=== PATIENT | male | born 1940 | race Caucasian/White ===

== ENCOUNTER → 2016-10-22 | Outpatient (CLI) | payer BC, OTHER ==
[~2016-10-22] MED LIST: ACET-1256 PO; ALBUAER2 INH; CALC-354 PO; CALCTAB5 PO; CETI10TA84 PO; ERGO1CAP35 PO; FEXO1TAB46 PO; GLUC1CAP33 PO; LPR25 PO; LRS10 PO; MAGN250T22 PO; MAGN400T6 PO; MULTTAB5 PO; POTASSIUM OTC PO; PRLSR20 PO; SIMV20TA5 PO
[2016-10-22 10:14] LABS: BLOOD UREA NITROGEN 13 mg/dl (7-18); BUN/CREATININE RATIO 17.6 (10-20); CARBON DIOXIDE 29 mmol/L (21-32); CHLORIDE 103 mmol/L (98-107); CHOLESTEROL 299 mg/dl (0-200); CREATININE 0.71 mg/dl (0.60-1.40); GLUCOSE 105 mg/dl (70-99); MAGNESIUM 2.6 mg/dl (1.8-2.4); SODIUM 137 mmol/L (136-145)
[2016-10-22 10:17] LABS: CHOLESTEROL/HDL RATIO 6.5; HDL CHOLESTEROL 46 mg/dl; LDL CHOLESTEROL CALCULATED 174 mg/dl; TRIGLYCERIDES 394 mg/dl (0-150); VERY LOW DENSITY LIPOPROT CALC 79 mg/dl
[2016-10-22 10:31] LABS: CALCIUM 9.6 mg/dl (8.5-10.1)
== END | disposition home or self-care (01) ==
LOC: C.LAB1850 08:39
PROVIDERS: ATTEND Family Medicine
DX: K27.9 Peptic ulcer, site unspecified, unspecified as acute or chronic, without hemorrhage or perforation (principal); I10 Essential (primary) hypertension

== ENCOUNTER → 2017-03-19 | Outpatient (CLI) | payer BC, OTHER ==
[~2017-03-19] MED LIST changes: -CALC-354 PO; -CETI10TA84 PO; -GLUC1CAP33 PO; -MAGN250T22 PO
--- NOTE | 2017-03-19 17:23 | DIAGNOSTIC IMAGING REPORT ---
TWO VIEW CHEST CLINICAL HISTORY: COPD exacerbation. FINDINGS: PA and lateral chest radiographs are compared to chest x-ray and chest CT dated 09/12/2012. The cardiomediastinal silhouette is unremarkable. There is atherosclerotic calcification of the thoracic aorta. There is chronic elevation of the right hemidiaphragm with evidence of previous right-sided pulmonary resection. Trace pleural fluid is noted at the right lung base, likely on a postoperative basis. Emphysema and chronic interstitial thickening are similar to previous. No airspace consolidation or pleural effusion is identified. There is no pneumothorax. The skeletal structures are osteopenic. Compression deformities are noted in the thoracic spine. Chronic deformity is noted in the right sided ribs. IMPRESSION: 1. No acute cardiopulmonary abnormality. 2. Emphysema and postoperative change in the right lung are similar to previous. Electronically signed by: Amado Dumont M.D. 03/19/2017 5:22 PM Dictated Date/Time: 03/19/2017 5:19 PM
[2017-03-19 17:45] LABS: BASO % 0.4 %; BASO ABS # 0.04 K/uL (0-0.2); COMPLETE YES; EOS % 1.1 %; HEMATOCRIT 46.8 % (42-52); IG% 0.3 %; LYMPH % 8.2 %; LYMPH ABS # 0.83 K/uL (1.2-3.4); MEAN CELL VOLUME 90.2 fL (80-100); MEAN CORPUSCULAR HEMOGLOBIN 29.3 pg (25-34); MEAN CORPUSCULAR HGB CONC 32.5 g/dl (32-36); PLATELET COUNT 284 K/uL (130-400); RED BLOOD COUNT 5.19 M/uL (4.7-6.1); WHITE BLOOD COUNT 10.16 K/uL (4.8-10.8)
[2017-03-19 18:16] LABS: BLOOD UREA NITROGEN 14 mg/dl (7-18); BUN/CREATININE RATIO 17.5 (10-20); CALCIUM 9.6 mg/dl (8.5-10.1); CARBON DIOXIDE 30 mmol/L (21-32); CHLORIDE 103 mmol/L (98-107); CREATININE 0.78 mg/dl (0.60-1.40); GLUCOSE 107 mg/dl (70-99); POTASSIUM 4.2 mmol/L (3.5-5.1); SODIUM 139 mmol/L (136-145)
== END | disposition home or self-care (01) ==
LOC: C.LAB 16:38
PROVIDERS: ATTEND Nurse Practitioner Family
DX: J44.1 Chronic obstructive pulmonary disease with (acute) exacerbation (principal)

== ENCOUNTER 2017-04-26 16:47 | Emergency (ER) | payer BC, OTHER ==
[~2017-04-26] VITALS: Ht 170.2 cm; Wt 71.0 kg
[2017-04-26 16:55] VITALS: TEMP 36.5; Ht 170.2 cm; Wt 71.0 kg
[2017-04-26] MEDS ORDERED: SODIUM CHLORIDE 0.9% 1000ML 1,000 ML IV SCH (17:44)
[2017-04-26] MEDS ORDERED: PRLSR20 PO (18:06)
[2017-04-26] MEDS ORDERED: CALC-354 PO (18:06)
[2017-04-26] MEDS ORDERED: MAGN250T22 PO (18:06)
[2017-04-26] MEDS ORDERED: CETI10TA84 PO (18:06)
[2017-04-26] MEDS ORDERED: GLUC1CAP33 PO (18:06)
[2017-04-26 18:08] VITALS: O2SAT 93
[2017-04-26 18:29] LABS: BASO % 0.2 %; BASO ABS # 0.03 K/uL (0-0.2); COMPLETE YES; EOS % 0.6 %; HEMATOCRIT 50.3 % (42-52); IG% 0.5 %; LYMPH ABS # 1.17 K/uL (1.2-3.4); MEAN CORPUSCULAR HEMOGLOBIN 29.4 pg (25-34); MEAN PLATELET VOLUME 10.8 fL (7.4-10.4); MONO % 9.3 %; NEUT % 80.4 %; PLATELET COUNT 264 K/uL (130-400); RED BLOOD COUNT 5.65 M/uL (4.7-6.1); WHITE BLOOD COUNT 13.01 K/uL (4.8-10.8)
[2017-04-26 18:37] LABS: PARTIAL THROMBOPLASTIN RATIO 1.3; PROTHROMBIN TIME (PATIENT) 10.9 SECONDS (9.0-12.0)
[2017-04-26 18:51] LABS: BLOOD UREA NITROGEN 11 mg/dl (7-18); BUN/CREATININE RATIO 14.3 (10-20); CALCIUM 10.3 mg/dl (8.5-10.1); CARBON DIOXIDE 35 mmol/L (21-32); CHLORIDE 97 mmol/L (98-107); GLUCOSE 104 mg/dl (70-99); MAGNESIUM 2.4 mg/dl (1.8-2.4); POTASSIUM 3.2 mmol/L (3.5-5.1); SODIUM 135 mmol/L (136-145)
[2017-04-26 18:56] LABS: CKMB/CK RATIO 3.3 (0-3.0)
--- NOTE | 2017-04-26 19:26 | DIAGNOSTIC IMAGING REPORT ---
CT OF THE HEAD WITHOUT CONTRAST CLINICAL HISTORY: Visual disturbance. Possible stroke. COMPARISON STUDY: Head CT September 14, 2012. TECHNIQUE: Helical axial images of the head were obtained without IV contrast. Automated exposure control was utilized for the study. A dose lowering technique was utilized adhering to the principles of ALARA. FINDINGS: No acute intracranial hemorrhage, midline shift or mass effect is present. Ventricular system is normal. Basilar cisterns are patent. There are no extra axial collections. There are no CT findings to suggest acute dural sinus thrombosis or acute territorial infarct. Of note, there is a large destructive mass centered within the posterior nasopharynx/retropharyngeal soft tissues which measures approximately 4.5 x 3.4 cm. There is extensive associated bony destruction involving the sphenoid sinuses, sella, clivus and anterior aspect of the occipital condyles. There is suspected intracranial extension as well as extension into the cavernous sinus. There is mild mucosal thickening of the posterior ethmoid air cells. The sphenoid sinuses are opacified, partially by tumor. Mastoid air cells are clear. IMPRESSION: 1. No acute intracranial hemorrhage. No CT evidence of acute infarct. 2. Large destructive mass centered within the sphenoid sinuses with extensive associated bony erosion involving the sella and clivus with suspected intracranial extension and involvement of the cavernous sinus. The findings are highly suggestive of malignancy. ENT consultation is recommended. Electronically signed by: Willy Gibson M.D. 04/26/2017 7:24 PM Dictated Date/Time: 04/26/2017 7:11 PM
--- NOTE | 2017-04-26 19:34 | DIAGNOSTIC IMAGING REPORT ---
IAC-ORB/SELLA/TEMP BONE W/O CLINICAL HISTORY: Left eye proptosis, double vision. COMPARISON STUDY: Head CT September 14, [address] September 12, 2012. TECHNIQUE: Axial images through the orbits were obtained without IV contrast. Coronal and sagittal reconstructions were viewed. FINDINGS: Note is made of a large destructive mass centered within the sphenoid sinuses which measures approximately 4.5 x 3.4 cm. There is extensive associated bony erosion, including erosion of the moya of the sphenoid sinus, the sella, the clivus and anterior occipital condyles. There is extension into the retropharyngeal soft tissues with marked narrowing/occlusion of the nasopharynx. The inferior aspect of this abnormality is not imaged on this examination. There is moderate mucosal thickening of the right maxillary and ethmoid sinuses. A small amount of fluid is noted within left mastoid air cells. Suspected intracranial extension is noted as well as involvement of the cavernous sinus. IMPRESSION: 1. Large destructive mass centered within the clivus and sphenoid sinuses with extensive bony erosion, intracranial extension and involvement of the cavernous sinuses as well as extension into the retropharyngeal soft tissues with marked narrowing of the nasopharynx. Inferior extent of this abnormality not imaged on this exam. These findings are highly suggestive of a malignancy. ENT consultation is recommended. 2. Moderate sinus mucosal thickening and a small amount of fluid within the left mastoid air cells. Electronically signed by: Willy Gibson M.D. 04/26/2017 7:32 PM Dictated Date/Time: 04/26/2017 7:26 PM
--- NOTE | 2017-04-26 22:58 | DIAGNOSTIC IMAGING REPORT ---
FACIAL/NECK MRI WITH AND WITHOUT CONTRAST CLINICAL HISTORY: New onset diplopia and eye deviation, abnormal CT findings. COMPARISON STUDY: Head CT and Orbit CT performed earlier today. TECHNIQUE: Utilizing a 1.5 Amie magnet and dedicated coil, multiplanar, multi echo imaging of the face and neck was performed pre and postcontrast administration. Injection of 7.5 cc of Gadavist IV was uneventful. Thin cut post contrast imaging was performed with reconstructions. FINDINGS: Note is made of a large destructive mass centered within the right posterior nasopharynx that measures 7.8 x 5.2 x 2.5 cm in the craniocaudal by transverse by AP dimensions respectively. This mass is T1 hypointense and T2 hyperintense and demonstrates avid peripheral enhancement with nonenhancing central portions which could reflect necrosis. Associated bony destruction is better depicted on the head CT which was performed earlier today. There is extension into the cavernous sinus as well as suspected slight intracranial extension through the posterior aspect of the clivus. Associated bony involvement includes the moya of the sphenoid sinus, the sella and the clivus. Motion artifact makes exact delineation of the mass difficult. No cervical lymphadenopathy is identified. Moderate amount of fluid is noted within left mastoid air cells. There is moderate mucosal thickening of the sinuses. The sphenoid sinuses are opacified. The MRI of the brain will be reported separately. IMPRESSION: 1. Large infiltrative mass centered within the right posterior nasopharynx with extensive bony destruction, better depicted on CT performed earlier today. Extension into the cavernous sinus and probable minimal intracranial extension through the posterior clivus. Motion artifact makes exact delineation of the mass difficult. 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 However, nasopharyngeal lymphoma, adenoid cystic carcinoma, plasmacytoma, chondrosarcoma and chordoma could appear similar. ENT consultation for consideration for tissue sampling is recommended. 2. No cervical lymphadenopathy identified although sensitivity diminished given motion artifact. Electronically signed by: Willy Gibson M.D. 04/26/2017 10:57 PM Dictated Date/Time: 04/26/2017 10:45 PM
--- NOTE | 2017-04-26 22:59 | DIAGNOSTIC IMAGING REPORT ---
MRI OF THE BRAIN WITHOUT AND WITH IV CONTRAST CLINICAL HISTORY: New onset diplopia and eye deviation, abnormal CT findings. COMPARISON STUDY: Head CT and orbit CT performed earlier today. TECHNIQUE: Utilizing a 1.5 Amie magnet and dedicated coil, multiplanar, multiecho imaging of the brain was performed pre and postcontrast administration. IV administration of 7.5 mL of Gadavist contrast was uneventful. FINDINGS: There are no foci of restricted diffusion to suggest acute infarct. No acute intracranial hemorrhage is present. This exam is compromised by motion artifact. Ventricular system is unremarkable. Basilar cisterns are patent. There are no extra-axial collections. A few white matter T2 hyperintense foci suggest mild small vessel disease. Note is made of a large destructive mass centered within the right posterior nasopharynx that measures 7.8 x 4.8 x 2.7 cm in the craniocaudal by transverse by AP dimensions respectively. This mass is T1 hypointense and T2 hyperintense and demonstrates avid peripheral enhancement with nonenhancing central portions which could reflect necrosis. Associated bony destruction is better depicted on the head CT which was performed earlier today. There is extension into the cavernous sinus as well as suspected slight intracranial extension through the posterior aspect of the clivus. Associated bony involvement involves the moya of the sphenoid sinus, the sella and the clivus. A moderate amount of fluid is noted within the left mastoid air cells. Flow-voids for the major intracranial vessels are present. There is mild to moderate mucosal thickening of the sinuses. IMPRESSION: 1. No evidence for acute infarction. No acute intracranial hemorrhage. 2. Large infiltrative enhancing mass centered within the right posterior nasopharynx with extensive osseous invasion and involvement of the cavernous sinus and probable intracranial extension through the clivus. 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 However, nasopharyngeal lymphoma, metastatic disease, adenoid cystic carcinoma, plasmacytoma, chondrosarcoma, and chordoma could appear similar. ENT consultation is recommended. Electronically signed by: Willy Gibson M.D. 04/26/2017 10:57 PM Dictated Date/Time: 04/26/2017 10:35 PM
[2017-04-26] MEDS ORDERED: POTASSIUM CHLORIDE 10 MEQ TABCR PO STA (23:42)
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
[2017-04-26 23:58] VITALS: BP 129/79; PULSE 122; O2SAT 93
[2017-04-27 00:06] LABS: THYROID STIMULATING HORMONE 0.957 uIu/ml (0.300-4.500)
--- NOTE | 2017-04-27 11:18 | EMERGENCY ROOM VISIT NOTE ---
History First contact with patient: 17:07 Chief Complaint: EYE ASSESSMENT Stated Complaint: LEFT EYE GOING CROSSED, SINUSES CLOSED OVER A SHAYLA History of Present Illness The patient is a 77 year old male who presents to the Emergency Room with complaints of double vision which started yesterday. He states that this started as seeing two things right next to each other after waking up from a nap. noticed that when he woke up, his left eye was "crooked and discolored (red)." He reports a gritty tingly sensation of the left eye but no pain. He reports no trauma to the area. Also reports he has been suffering from a head cold for over one month now, mostly sinus congestion. He has been on multiple antibiotics and mucinex, none of which have helped. 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 Review of Systems Constitutional: No fever, No chills, No sweats, No weight loss, No weakness , No fatigue, No problem reported Eyes: + worsening of vision, + redness, + diplopia, No eye pain, No discharge ENT: + nasal symptoms, + sore throat, + trouble swallowing, No unusual epistaxis Respiratory: + cough, + sputum, + shortness of breath Cardiovascular: No chest pain, No orthopnea, No PND, No edema, No claudication, No palpitations, No problem reported Abdomen: No pain, No nausea, No vomiting, No diarrhea, No constipation, No GI bleeding, No problem reported Musculoskeletal: + joint pain Genitourinary - Male: No hematuria, No dysuria, No urinary frequency, No urinary urgency, No urinary hesitancy, No urinary retention, No urinary incontinence, No penile discharge, No lesions, No impotence, No problem reported Neurologic: No numbness/tingling, No vertigo, No balance problems Past Medical/Surgical History Medical Problems: (1) Amputated above knee (2) History of sarcoma Surgical Problems: (1) S/P lobectomy of lung Social History Smoking Status: Former Smoker Current/Historical Medications Scheduled Calcium Carbonate-Cholecalcife (Caltrate 600+D), 1 TAB PO DAILY Cetirizine (Zyrtec), 10 MG PO DAILY Glucosamine-Chondroitin (Glucosamine & Chondroitin 500-400 mg), 1 TAB PO DAILY Magnesium Oxide (Magnesium), 1 TAB PO DAILY Omeprazole (Prilosec), 20 MG PO BID Physical Exam Vital Signs Date Time Temp Pulse Resp B/P (MAP) Pulse Ox O2 Delivery O2 Flow Rate FiO2 04/26/17 23:58 122 16 129/79 93 04/26/17 22:31 72 20 122/71 95 Room Air 04/26/17 20:03 117 04/26/17 19:59 116 18 148/92 96 Room Air 04/26/17 19:14 114 22 123/101 92 Room Air 04/26/17 18:08 93 Room Air 04/26/17 16:55 36.5 124 20 106/64 93 Room Air Physical Exam General Appearance: WD/WN, no apparent distress Head: normocephalic, atraumatic Eyes: PERRL, + abnormal EOM (disconjugate gaze, with left eye adduction( lateral gaze) intact and left eye abduction (medial gaze) compromised), + pertinent finding (left eye mildly proptosed and erythematous; left eye deviated medially and superiorly) ENT: + muffled/hoarse voice, + pertinent finding (soft palate appears to be depressed and bulbous) Neck: supple, no adenopathy, thyroid normal, no carotid bruits, trachea midline Respiratory/Chest: chest non-tender, lungs clear, normal breath sounds, no respiratory distress Cardiovascular: regular rate, rhythm, no edema, no gallop, no JVD, no murmur Abdomen / GI: normal bowel sounds, non tender, no organomegaly Extremities: no pedal edema, + pertinent finding (patient has AKA of right leg. 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 COMPARISON STUDY: Head CT September 14, [address] September 12, 2012. TECHNIQUE: Axial images through the orbits were obtained without IV contrast. Coronal and sagittal reconstructions were viewed. FINDINGS: Note is made of a large destructive mass centered within the sphenoid sinuses which measures approximately 4.5 x 3.4 cm. There is extensive associated bony erosion, including erosion of the moya of the sphenoid sinus, the sella, the clivus and anterior occipital condyles. There is extension into the retropharyngeal soft tissues with marked narrowing/occlusion of the nasopharynx. The inferior aspect of this abnormality is not imaged on this examination. There is moderate mucosal thickening of the right maxillary and ethmoid sinuses. A small amount of fluid is noted within left mastoid air cells. Suspected intracranial extension is noted as well as involvement of the cavernous sinus. IMPRESSION: 1. Large destructive mass centered within the clivus and sphenoid sinuses with extensive bony erosion, intracranial extension and involvement of the cavernous sinuses as well as extension into the retropharyngeal soft tissues with marked narrowing of the nasopharynx. Inferior extent of this abnormality not imaged on this exam. These findings are highly suggestive of a malignancy. ENT consultation is recommended. 2. Moderate sinus mucosal thickening and a small amount of fluid within the left mastoid air cells. CT OF THE HEAD WITHOUT CONTRAST CLINICAL HISTORY: Visual disturbance. Possible stroke. COMPARISON STUDY: Head CT September 14, 2012. TECHNIQUE: Helical axial images of the head were obtained without IV contrast. Automated exposure control was utilized for the study. A dose lowering technique was utilized adhering to the principles of ALARA. FINDINGS: No acute intracranial hemorrhage, midline shift or mass effect is present. Ventricular system is normal. Basilar cisterns are patent. There are no extra axial collections. There are no CT findings to suggest acute dural sinus thrombosis or acute territorial infarct. Of note, there is a large destructive mass centered within the posterior nasopharynx/retropharyngeal soft tissues which measures approximately 4.5 x 3.4 cm. There is extensive associated bony destruction involving the sphenoid sinuses, sella, clivus and anterior aspect of the occipital condyles. There is suspected intracranial extension as well as extension into the cavernous sinus. There is mild mucosal thickening of the posterior ethmoid air cells. The sphenoid sinuses are opacified, partially by tumor. Mastoid air cells are clear. IMPRESSION: 1. No acute intracranial hemorrhage. No CT evidence of acute infarct. 2. Large destructive mass centered within the sphenoid sinuses with extensive associated bony erosion involving the sella and clivus with suspected intracranial extension and involvement of the cavernous sinus. The findings are highly suggestive of malignancy. ENT consultation is recommended. FACIAL/NECK MRI WITH AND WITHOUT CONTRAST CLINICAL HISTORY: New onset diplopia and eye deviation, abnormal CT findings. COMPARISON STUDY: Head CT and Orbit CT performed earlier today. TECHNIQUE: Utilizing a 1.5 Amie magnet and dedicated coil, multiplanar, multi echo imaging of the face and neck was performed pre and postcontrast administration. Injection of 7.5 cc of Gadavist IV was uneventful. Thin cut post contrast imaging was performed with reconstructions. FINDINGS: Note is made of a large destructive mass centered within the right posterior nasopharynx that measures 7.8 x 5.2 x 2.5 cm in the craniocaudal by transverse by AP dimensions respectively. This mass is T1 hypointense and T2 hyperintense and demonstrates avid peripheral enhancement with nonenhancing central portions which could reflect necrosis. Associated bony destruction is better depicted on the head CT which was performed earlier today. There is extension into the cavernous sinus as well as suspected slight intracranial extension through the posterior aspect of the clivus. Associated bony involvement includes the moya of the sphenoid sinus, the sella and the clivus. Motion artifact makes exact delineation of the mass difficult. No cervical lymphadenopathy is identified. Moderate amount of fluid is noted within left mastoid air cells. There is moderate mucosal thickening of the sinuses. The sphenoid sinuses are opacified. The MRI of the brain will be reported separately. IMPRESSION: 1. Large infiltrative mass centered within the right posterior nasopharynx with extensive bony destruction, better depicted on CT performed earlier today. Extension into the cavernous sinus and probable minimal intracranial extension through the posterior clivus. Motion artifact makes exact delineation of the mass difficult. 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 However, nasopharyngeal lymphoma, adenoid cystic carcinoma, plasmacytoma, chondrosarcoma and chordoma could appear similar. ENT consultation for consideration for tissue sampling is recommended. 2. No cervical lymphadenopathy identified although sensitivity diminished given motion artifact. MRI OF THE BRAIN WITHOUT AND WITH IV CONTRAST CLINICAL HISTORY: New onset diplopia and eye deviation, abnormal CT findings. COMPARISON STUDY: Head CT and orbit CT performed earlier today. TECHNIQUE: Utilizing a 1.5 Amie magnet and dedicated coil, multiplanar, multiecho imaging of the brain was performed pre and postcontrast administration. IV administration of 7.5 mL of Gadavist contrast was uneventful. FINDINGS: There are no foci of restricted diffusion to suggest acute infarct. No acute intracranial hemorrhage is present. This exam is compromised by motion artifact. Ventricular system is unremarkable. Basilar cisterns are patent. There are no extra-axial collections. A few white matter T2 hyperintense foci suggest mild small vessel disease. Note is made of a large destructive mass centered within the right posterior nasopharynx that measures 7.8 x 4.8 x 2.7 cm in the craniocaudal by transverse by AP dimensions respectively. This mass is T1 hypointense and T2 hyperintense and demonstrates avid peripheral enhancement with nonenhancing central portions which could reflect necrosis. Associated bony destruction is better depicted on the head CT which was performed earlier today. There is extension into the cavernous sinus as well as suspected slight intracranial extension through the posterior aspect of the clivus. Associated bony involvement involves the moya of the sphenoid sinus, the sella and the clivus. A moderate amount of fluid is noted within the left mastoid air cells. Flow-voids for the major intracranial vessels are present. There is mild to moderate mucosal thickening of the sinuses. IMPRESSION: 1. No evidence for acute infarction. No acute intracranial hemorrhage. 2. Large infiltrative enhancing mass centered within the right posterior nasopharynx with extensive osseous invasion and involvement of the cavernous sinus and probable intracranial extension through the clivus. 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 However, nasopharyngeal lymphoma, metastatic disease, adenoid cystic carcinoma, plasmacytoma, chondrosarcoma, and chordoma could appear similar. ENT consultation is recommended. Laboratory Results 04/26/17 18:00 Red Blood Count 5.65, Mean Corpuscular Volume 89.0, Mean Corpuscular Hemoglobin 29.4, Mean Corpuscular Hemoglobin Concent 33.0, Mean Platelet Volume 10.8, Neutrophils (%) (Auto) 80.4, Lymphocytes (%) (Auto) 9.0, Monocytes (%) (Auto) 9.3, Eosinophils (%) (Auto) 0.6, Basophils (%) (Auto) 0.2, Neutrophils # (Auto) 10.45, Lymphocytes # (Auto) 1.17, Monocytes # (Auto) 1.21, Eosinophils # (Auto) 0.08, Basophils # (Auto) 0.03 04/26/17 18:00 Test 04/26/17 18:00 04/26/17 18:26 White Blood Count 13.01 K/uL (4.8-10.8) Red Blood Count 5.65 M/uL (4.7-6.1) Hemoglobin 16.6 g/dL (14.0-18.0) Hematocrit 50.3 % (42-52) Mean Corpuscular Volume 89.0 fL (80-100) Mean Corpuscular Hemoglobin 29.4 pg (25-34) Mean Corpuscular Hemoglobin Concent 33.0 g/dl (32-36) Platelet Count 264 K/uL (130-400) Mean Platelet Volume 10.8 fL (7.4-10.4) Neutrophils (%) (Auto) 80.4 % Lymphocytes (%) (Auto) 9.0 % Monocytes (%) (Auto) 9.3 % Eosinophils (%) (Auto) 0.6 % Basophils (%) (Auto) 0.2 % Neutrophils # (Auto) 10.45 K/uL (1.4-6.5) Lymphocytes # (Auto) 1.17 K/uL (1.2-3.4) Monocytes # (Auto) 1.21 K/uL (0.11-0.59) Eosinophils # (Auto) 0.08 K/uL (0-0.5) Basophils # (Auto) 0.03 K/uL (0-0.2) RDW Standard Deviation 47.0 fL (36.4-46.3) RDW Coefficient of Variation 14.5 % (11.5-14.5) Immature Granulocyte % (Auto) 0.5 % Immature Granulocyte # (Auto) 0.07 K/uL (0.00-0.02) Prothrombin Time 10.9 SECONDS (9.0-12.0) Prothromb Time International Ratio 1.0 (0.9-1.1) Activated Partial Thromboplast Time 34.9 SECONDS (21.0-31.0) Partial Thromboplastin Ratio 1.3 Anion Gap 3.0 mmol/L (3-11) Est Creatinine Clear Calc Drug Dose 73.5 ml/min Estimated GFR () 100.6 Estimated GFR (Non- 86.8 BUN/Creatinine Ratio 14.3 (10-20) Calcium Level 10.3 mg/dl (8.5-10.1) Magnesium Level 2.4 mg/dl (1.8-2.4) Total Creatine Kinase 40 U/L (39-308) Creatine Kinase MB 1.3 ng/ml (0.5-3.6) Creatine Kinase MB Ratio 3.3 (0-3.0) Troponin I < 0.015 ng/ml (0-0.045) Thyroid Stimulating Hormone (TSH) 0.957 uIu/ml (0.300-4.500) Bedside Glucose 107 mg/dl (70-99) Medications Administered Medications (Trade) Dose Ordered Sig/Yaneth Route Start Time Stop Time Status Last Admin Dose Admin Potassium Chloride (Klor-Con M10) 20 meq NOW STAT PO 04/26/17 23:42 04/26/17 23:44 DC 04/26/17 23:54 20 MEQ ED Course 1725: full h&p peformed. 1806: The patient was evaluated in room A9B by Dr. Islas. A complete history and physical exam was performed. 2005: Patient was reevaluated and updated on his test results. 2301: Patient reevaluated, he is doing well. 2330: informed patient and family on steps forward. Patient and family are amenable. Gave 20 mEq potassium tablet prior to discharge Medical Decision Triage Nursing notes reviewed. The patient's presentation and history were concerning for diplopia and sinus congestion. Etiologies such as CVA, TIA, sinus thrombosis, tumor, metabolic, infection, intracerebral event, neurologic, as well as others were entertained. Patient was evaluated. His soft palate appear to be full on examination. He had obvious deficits of his extraocular muscles Causing the diplopia. the patient had a slight leukocytosis but no evidence of meningitis on examination. The patient had mild hypokalemia. This was repleted. He was afebrile. He had no fluid leaking from his nose. There is no obvious mucosal destruction noted in the oropharynx. The patient is mentating normally. CT imaging was performed and revealed the abnormal issues as above. Dr. Islas discussed the case with Dr. Gibson of radiology. He was very concerned about the appearance. The patient underwent MR imaging. Findings as above. 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 Consultation was made with Dr. Delgado, neurology here, who recommended tertiary care evaluation. Dr. Islas discussed the case with Dr. Zhou at [facility] neurosurgery. As the patient has no evidence of stroke or vasogenic edema or signs of meningitis he felt that prompt follow-up in the clinic is most appropriate with their skull based tumor specialist, Dr. Ortega. Family felt comfortable with this plan. The patient felt comfortable as well. If he develops any additional issues he will come back to the emergency department. He will hear from the clinic on Friday. He was provided with the information for contact as well. If there are any issues arranging this urgent follow-up he or family will contact us here at the emergency department for assistance. By the evaluation outlined above other emergent etiologies such as those listed in the differential, as well as others, were deemed relatively unlikely. The patient was educated about the findings as listed above. All questions were answered and the patient was pleased with the treatment. Return instructions were outlined and the patient was discharged in stable condition. The patient was referred to neurosurgery, [facility] urgently for follow -up for a recheck of the current condition. Impression Primary Impression: Nasopharyngeal mass Departure Information Dispostion Home / Self-Care Condition FAIR Referrals Cinda Hill MD (PCP) Patient Instructions [facility] Additional Instructions Continue current medications. Rest and drink plenty fluids. You should hear from [facility] neurosurgery Friday. If you do not hear from them by lunchtime call [phone] and discussed the case with the regulatory compliance manager. Tell them you were in the Emergency Room and Dr. Zhou wants an urgent follow up with Dr. Ortega. Return to the ER for headache, passing out, difficulty breathing, fevers, numbness, tingling, worsening of your condition, or as needed. Follow-up with your primary physician next week as well. A recheck of your potassium is necessary. Resident Tracking Resident Involvement: Resident Care Provided Care Provided: Adult ED
== END 2017-04-26 23:59 | disposition home or self-care (01) ==
LOC: C.EDB 16:48 → C.EDA 23:59
DX: D49.0 Neoplasm of unspecified behavior of digestive system (principal); H53.2 Diplopia; E87.6 Hypokalemia; R00.0 Tachycardia, unspecified; Z89.611 Acquired absence of right leg above knee; Z79.899 Other long term (current) drug therapy; Z85.118 Personal history of other malignant neoplasm of bronchus and lung; Z85.831 Personal history of malignant neoplasm of soft tissue; Z87.891 Personal history of nicotine dependence